=== PATIENT | female | born 2005 | race Caucasian/White ===

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

== ENCOUNTER 2024-03-27 13:56 | Outpatient (CLI) | payer OTHER | END 2024-03-27 13:57 | disposition home or self-care (01) | LOC: SCSMRI 13:56 | PROVIDERS: ATTEND Psychiatry & Neurology Neurology | DX: R51.9 Headache, unspecified (principal); J34.1 Cyst and mucocele of nose and nasal sinus | CPT/HCPCS: 70544; 70551 ==